=== PATIENT | female | born 1955 | race Caucasian/White ===

== ENCOUNTER 2016-11-07 12:33 | Emergency (ER) | payer OTHER ==
[~2016-11-07] VITALS: Ht 167.6 cm; Wt 91.0 kg
[2016-11-07 12:35] VITALS: BP 173/97; PULSE 95; RESP 16; TEMP 99; O2SAT 97
[2016-11-07] MEDS ORDERED: LISI10TA3 PO (12:51)
--- NOTE | 2016-11-07 13:12 | PD ---
HPI Chief Complaint: Dizziness Time Seen by Provider: 12:50 Travel History International Travel<30 days: No Contact w/Intl Traveler<30days: No Traveled to known affect area: No History of Present Illness HPI 61yo F with PMH of HTN presents to the ED with c/o dizziness for 2 days. States she have reproducible dizziness when she looks up or down and it resolves when she looks straight. Dizziness is hard to describe but severe and associated with nausea. Pt had ringing in the right ear that resolved. Denies any fever, trauma, chest pain, sob, n/v, abdominal pain, focal weakness or numbness or abnormal gait. Denies any trouble walking, just dizzy when she moves her head up and down. PFSH Past Medical History Hypertension: Yes Past Surgical History Other Surgery: Yes (NECK) Social History Alcohol Use: No Tobacco Use: No Substance Use: No Allergies-Medications (Allergen,Severity, Reaction): Coded Allergies: No Known Allergies (Unverified , 11/07/16) Reported Meds & Prescriptions Reported Meds & Active Scripts Active Reported Lisinopril 10 Mg Tab 10 Mg PO DAILY Review of Systems Except as stated in HPI: all other systems reviewed are Neg Physical Exam Narrative GENERAL: 61yo F not in distress. SKIN: Warm and dry. HEAD: Atraumatic. Normocephalic. EYES: Pupils equal and round. No scleral icterus. No injection or drainage. ENT: No nasal bleeding or discharge. Mucous membranes pink and moist. TM wnl bilaterally. NECK: Trachea midline. No JVD. CARDIOVASCULAR: Regular rate and rhythm. No murmur appreciated. RESPIRATORY: No accessory muscle use. Clear to auscultation. Breath sounds equal bilaterally. GASTROINTESTINAL: Abdomen soft, non-tender, nondistended. Hepatic and splenic margins not palpable. MUSCULOSKELETAL: No obvious deformities. No clubbing. No cyanosis. No edema. NEUROLOGICAL: Awake and alert. No obvious cranial nerve deficits. Motor grossly within normal limits. Normal speech. Normal finger to nose test. + Reproducible dizziness with turning of her head. PSYCHIATRIC: Appropriate mood and affect; insight and judgment normal. Data Data Last Documented VS Vital Signs Date Time Temp Pulse Resp B/P Pulse Ox O2 Delivery O2 Flow Rate FiO2 11/07/16 14:20 80 16 170/90 94 Room Air 11/07/16 12:[address] Brain W/O Iv Contrast(Rout) (11/07/16 ) Complete Blood Count With Diff (11/07/16 13:07) Basic Metabolic Panel (Bmp) (11/07/16 13:07) Magnesium (Mg) (11/07/16 13:07) Meclizine (Antivert) (11/07/16 13:15) Ondansetron Odt (Zofran Odt) (11/07/16 13:15) Orthostatic Vital Signs (11/07/16 13:07) Lisinopril (Prinivil) (11/07/16 13:45) Lisinopril (Prinivil) (11/07/16 13:45) Labs Laboratory Tests Test 11/07/16 13:10 White Blood Count 6.6 TH/MM3 Red Blood Count 4.73 MIL/MM3 Hemoglobin 13.5 GM/DL Hematocrit 40.8 % Mean Corpuscular Volume 86.3 FL Mean Corpuscular Hemoglobin 28.6 PG Mean Corpuscular Hemoglobin 33.1 % Concent Red Cell Distribution Width 11.8 % Platelet Count 275 TH/MM3 Mean Platelet Volume 8.9 FL Neutrophils (%) (Auto) 80.6 % Lymphocytes (%) (Auto) 15.2 % Monocytes (%) (Auto) 3.7 % Eosinophils (%) (Auto) 0.2 % Basophils (%) (Auto) 0.3 % Neutrophils # (Auto) 5.4 TH/MM3 Lymphocytes # (Auto) 1.0 TH/MM3 Monocytes # (Auto) 0.2 TH/MM3 Eosinophils # (Auto) 0.0 TH/MM3 Basophils # (Auto) 0.0 TH/MM3 CBC Comment DIFF FINAL Differential Comment Sodium Level 141 MEQ/L Potassium Level 3.9 MEQ/L Chloride Level 104 MEQ/L Carbon Dioxide Level 28.0 MEQ/L Anion Gap 9 MEQ/L Blood Urea Nitrogen 9 MG/DL Creatinine 0.88 MG/DL Estimat Glomerular Filtration 66 ML/MIN Rate Random Glucose 146 MG/DL Calcium Level 9.0 MG/DL Magnesium Level 2.3 MG/DL MDM Medical Decision Making Medical Screen Exam Complete: Yes Emergency Medical Condition: Yes Interpretation(s) EKG: NSR 91bpm. Normal axis. No ST segment elevation or depression. Laboratory Tests Test 11/07/16 13:10 White Blood Count 6.6 TH/MM3 (4.0-11.0) Red Blood Count 4.73 MIL/MM3 (4.00-5.30) Hemoglobin 13.5 GM/DL (11.6-15.3) Hematocrit 40.8 % (35.0-46.0) Mean Corpuscular Volume 86.3 FL (80.0-100.0) Mean Corpuscular Hemoglobin 28.6 PG (27.0-34.0) Mean Corpuscular Hemoglobin 33.1 % Concent (32.0-36.0) Red Cell Distribution Width 11.8 % (11.6-17.2) Platelet Count 275 TH/MM3 (150-450) Mean Platelet Volume 8.9 FL (7.0-11.0) Neutrophils (%) (Auto) 80.6 % (16.0-70.0) Lymphocytes (%) (Auto) 15.2 % (9.0-44.0) Monocytes (%) (Auto) 3.7 % (0.0-8.0) Eosinophils (%) (Auto) 0.2 % (0.0-4.0) Basophils (%) (Auto) 0.3 % (0.0-2.0) Neutrophils # (Auto) 5.4 TH/MM3 (1.8-7.7) Lymphocytes # (Auto) 1.0 TH/MM3 (1.0-4.8) Monocytes # (Auto) 0.2 TH/MM3 (0-0.9) Eosinophils # (Auto) 0.0 TH/MM3 (0-0.4) Basophils # (Auto) 0.0 TH/MM3 (0-0.2) CBC Comment DIFF FINAL Differential Comment Sodium Level 141 MEQ/L (136-145) Potassium Level 3.9 MEQ/L (3.5-5.1) Chloride Level 104 MEQ/L (98-107) Carbon Dioxide Level 28.0 MEQ/L (21.0-32.0) Anion Gap 9 MEQ/L (5-15) Blood Urea Nitrogen 9 MG/DL (7-18) Creatinine 0.88 MG/DL (0.50-1.00) Estimat Glomerular Filtration 66 ML/MIN (>89) Rate Random Glucose 146 MG/DL (74-106) Calcium Level 9.0 MG/DL (8.5-10.1) Magnesium Level 2.3 MG/DL (1.5-2.5) Last Impressions Head CT 11/07/16 0000 Signed Impressions: Service Date/Time: Monday, November 07, 2016 13:40 - CONCLUSION: Normal examination. Bethel Hamilton MD Differential Diagnosis Benign peripheral vertigo vs. labryngitis vs. menieres vs. electrolyte abnormality vs. arrhythmia Narrative Course 61yo F with symptoms consistent with benign peripheral vertigo. BP was elevated but pt states she has HTN and was away so have not been taking her lisinopril 10mg PO. Pt given lisinopril here and BP improved. Labs reviewed, no leukocytosis. BMP unremarkable. CT brain negative. Pt given zofran and meclizine. Pt reevaluated at bedside and states she now can lie down without feeling dizzy. Denies any more nausea. Return precautions given. Diagnosis Primary Impression: Vertigo Patient Instructions: General Instructions Departure Forms: Tests/Procedures Additional Instructions: Please follow up with your PMD in 3-7 days. Return to the ED if symptoms worsen. Med/Other Pt SpecificInfo: Prescription(s) given Scripts Meclizine 25 Mg Tab25 Mg PO DIRECTED PRN (VERTIGO) 3 Days Ref 0 Prov:Jennifer Salvador DO 11/07/16 Disposition: 01 DISCHARGE HOME Condition: Stable Jennifer Salvador DO Nov 07, 2016 13:12
[2016-11-07] MEDS ORDERED: MECLIZINE HCL 25 MG TAB PO ONE (13:15)
[2016-11-07] MEDS ORDERED: ONDANSETRON ODT 4 MG TAB PO/SL ONE (13:15)
[2016-11-07 13:21] VITALS: BP_SYST 191; BP_SYST 198; BP_SYST 199; BP_DIAS 107; BP_DIAS 94; BP_DIAS 95; RESP 20
[2016-11-07 13:23] LABS: AUTOMATED NEUTROPHIL # 5.4 TH/MM3 (1.8-7.7); BASOPHIL % 0.3 % (0.0-2.0); EOSINOPHIL % 0.2 % (0.0-4.0); HEMATOCRIT 40.8 % (35.0-46.0); HEMO FLAGS DIFF FINAL; LYMPH % 15.2 % (9.0-44.0); MEAN CELL VOLUME 86.3 FL (80.0-100.0); MEAN CORPUSCULAR HEMOGLOBIN 28.6 PG (27.0-34.0); MEAN CORPUSCULAR HGB CONC 33.1 % (32.0-36.0); MONO % 3.7 % (0.0-8.0); NEUT % 80.6 % (16.0-70.0); PLATELET COUNT 275 TH/MM3 (150-450); RED BLOOD COUNT 4.73 MIL/MM3 (4.00-5.30); RED CELL DISTRIBUTION WIDTH 11.8 % (11.6-17.2); WHITE BLOOD COUNT 6.6 TH/MM3 (4.0-11.0)
[2016-11-07 13:31] LABS: POTASSIUM 3.9 MEQ/L (3.5-5.1)
[2016-11-07 13:33] LABS: MAGNESIUM 2.3 MG/DL (1.5-2.5)
[2016-11-07] MEDS ORDERED: LISINOPRIL 10 MG TAB PO ONE (13:45)
[2016-11-07] MEDS ORDERED: LISINOPRIL 5 MG TAB PO ONE (13:45)
--- NOTE | 2016-11-07 13:50 | RADHPO ---
EXAM DATE/TIME: 11/07/2016 13:40 [facility] COMPARISON: No previous studies available for comparison. INDICATIONS : Dizziness. RADIATION DOSE: 60.32 CTDIvol (mGy) MEDICAL HISTORY : Hypertension. SURGICAL HISTORY : None. ENCOUNTER: Initial ACUITY: 2 days PAIN SCALE: 0/10 LOCATION: cranial TECHNIQUE: Multiple contiguous axial images were obtained of the head. Using automated exposure control and adj ustment of the mA and/or kV according to patient size, radiation dose was kept as low as reasonably a chievable to obtain optimal diagnostic quality images. FINDINGS: CEREBRUM: The ventricles are normal for age. No evidence of midline shift, mass lesion, hemorrhage or acute in farction. No extra-axial fluid collections are seen. POSTERIOR FOSSA: The cerebellum and brainstem are intact. The 4th ventricle is midline. The cerebellopontine angle i s unremarkable. EXTRACRANIAL: The visualized portion of the orbits is intact. SKULL: The calvaria is intact. No evidence of skull fracture. CONCLUSION: Normal examination. Bethel Hamilton MD on November 07, 2016 at 13:48 Board Certified Radiologist. This report was verified electronically.
[2016-11-07 14:20] VITALS: BP 170/90; PULSE 80; RESP 16; O2SAT 94
[2016-11-07] MEDS ORDERED: MECL-62 PO (14:37)
--- NOTE | 2016-11-07 23:14 | EKG ---
Date Performed: 11/07/2016 Time Performed: 12:50:02 PTAGE: 61 years EKG: Sinus rhythm Possible inferior infarct - age undetermined Abnormal ECG NO PREVIOUS TRACING DOCTOR: Solis Vicente Interpretating Date/Time 11/07/2016 23:12:13
== END 2016-11-07 15:09 | disposition home or self-care (01) ==
LOC: PHED 12:33
DX: R42 Dizziness and giddiness (principal); I10 Essential (primary) hypertension
CPT/HCPCS: 70450; 80048; 83735; 85025; 93005